=== PATIENT | male | born 1945 | race Caucasian/White ===

== ENCOUNTER 2017-01-03 11:59 | Emergency (ER) | payer OTHER ==
[2017-01-03] MEDS ORDERED: HYDROmorphONE/DILAUDID 1 MG/ML SYR IVP ONE ×2 (12:15→13:29)
[2017-01-03] MEDS ORDERED: NS 1,000 ML IV ONE (12:15)
[2017-01-03] MEDS ORDERED: ONDANSETRON 4 MG/2 ML VIAL ONE (12:18)
--- NOTE | 2017-01-03 12:19 | EDPHY ---
H & P Stated Complaint: Slipped and fell;lac/inj to R wrist and L 5th finger;no LOC Source: Patient Exam Limitations: No limitations - Personal History Current Tetanus Diphtheria and Acellular Pertussis (TDAP): Yes - Medical/Surgical History Hx Asthma: No Hx Chronic Respiratory Disease: No Hx Diabetes: No Hx Cardiac Disease: No Hx Renal Disease: No Hx Cirrhosis: No Hx Alcoholism: No Hx HIV/AIDS: No Hx Splenectomy or Spleen Trauma: No Other PMH: HTN. chronic back pain - Family History Significant Family History: No pertinent family hx - Social History Smoking Status: Never smoked Alcohol Use: Sober Drug Use: None Time Seen by Provider: 01/03/17 12:06 HPI/ROS: CHIEF COMPLAINT: Wrist laceration HISTORY OF PRESENT ILLNESS: 71-year-old man who comes to the emergency department complaining of a laceration to his right wrist. He is trying to water his plants when he slipped and fell cut his wrist on a coffee can. He has a deep laceration with multiple tendons visible and lacerated. He has difficulty with flexion of his 3rd 4th and 5th finger on the right hand. He has normal sensation and pulses. He also has a abrasion to his left forehead but is not concerned about it. He denies headache or neck pain. REVIEW OF SYSTEMS: Constitutional: denies: chills, fever, recent illness, recent injury EENTM: denies: blurred vision, double vision, nose congestion Respiratory: denies: cough, shortness of breath Cardiac: denies: chest pain, irregular heart rate, lightheadedness, palpitations Gastrointestinal/Abdominal: denies: abdominal pain, diarrhea, nausea, vomiting, blood streaked stools Genitourinary: denies: dysuria, frequency, hematuria, pain Musculoskeletal: see HPI Skin: denies: lesions, rash, jaundice, bruising Neurological: denies: headache, numbness, paresthesia, tingling, dizziness, weakness Hematologic/Lymphatic: denies: blood clots, easy bleeding, easy bruising Immunologic/allergic: denies: HIV/AIDS, transplant EXAM: GENERAL: Well-appearing, well-nourished and in no acute distress. HEAD: Atraumatic, normocephalic. EYES: Pupils equal round and reactive to light, extraocular movements intact, sclera anicteric, conjunctiva are normal. ENT: TMs normal, nares patent, oropharynx clear without exudates. Moist mucous membranes. NECK: Normal range of motion, supple without lymphadenopathy or JVD. LUNGS: Breath sounds clear to auscultation bilaterally and equal. No wheezes rales or rhonchi. HEART: Regular rate and rhythm without murmurs, rubs or gallops. ABDOMEN: Soft, nontender, normoactive bowel sounds. No guarding, no rebound. No masses appreciated. BACK: No CVA tenderness, no spinal tenderness, step-offs or deformities EXTREMITIES: Large laceration to right palmar aspect of wrist. Several tendons lacerated that appear to be from the flexor digitorum superficialis. Some weakness over the 3rd 4th and 5th finger flexion. Normal sensation. Normal pulses. NEUROLOGICAL: Cranial nerves II through XII grossly intact. Normal speech, normal gait. 5/5 strength, normal movement in all extremities, normal sensation PSYCH: Normal mood, normal affect. SKIN: See above (Brad Davis) Constitutional: Initial Vital Signs Temperature (C) 36.8 C 01/03/17 12:00 Heart Rate 62 01/03/17 12:00 Respiratory Rate 18 01/03/17 12:00 Blood Pressure 183/100 H 01/03/17 12:00 O2 Sat (%) 98 01/03/17 12:00 O2 Delivery Mode Room Air Allergies/Adverse Reactions: No Known Allergies Allergy (Unverified 02/02/12 11:58) Home Medications: Medication Instructions Recorded Lisinopril [Zestril 10 mg (RX)] mg PO DAILY 01/24/12 Metoprolol Succinate mg PO 01/24/12 amLODIPine BESYLATE 12/13/15 Buprenorphine HCl [Belbuca] 75 mcg BC 01/03/17 oxyCODONE/APAP 5/325 [Percocet 1 - 2 tab PO Q4H PRN #14 tab 01/03/17 5/325 (*)] Medical Decision Making - Diagnostics Imaging: Discussed imaging studies w/ scallop cutter Radiologist - Diagnostics Imaging Results: Imaging Impressions Wrist X-Ray 01/03/17 12:15 Impression: Deep laceration. Procedures: My involvement the care this patient is solely for the procedure. Please see the note of Dr. Davis for all other aspects of care PROCEDURE: Laceration repair Consent: Verbal Location: Right forearm, volar Length of repair: 8 cm Complexity: 3 layer with compromise of the flexor digitorum, flexor indices and fascia of the flexor compartment Layer involvement: single layer closure at direction of Dr. Jaquez Anesthesia: Local by Dr. Davis Irrigation: Extensive Debridement: None Procedure description: Following good anesthesia, the wound was copiously irrigated. Wound bed was explored and there is no foreign body noted. There is multiple, extensive injury to the flexor apparatus, underlying subcutaneous tissue and muscle belly. These were left as is at the direction of Dr. Jaquez. Wound borders were approximated well with good hemostasis. Tolerated well without complication. Suture/Staple material: 5-0 Prolene, 17 simple interrupted sutures Wound care: Routine as discussed Suture/Staple removal: None. To be removed during surgical intervention by Dr. Jaquez (Pantera Mohamud) Procedure: Splint placement. A sugar-tong splint and sling was applied. After application of the splint I returned and re-examined the patient. The splint was adequately immobilizing the joint and distal to the splint the patient's circulation and sensation was intact. (Brad Davis) ED Course/Re-evaluation: 12:30 p.m. I discussed the case with Dr. Marcellus Jaquez. He recommends skin closure and splint in flex a donohue and he will plan surgery for next week. 2:20 p.m. the patient tolerated the procedure well. he will follow up with Dr. Jaquez on Thursday. He and his understand agree with this plan. They are happy with this. They are requesting Percocet for pain control. (Brad Davis) Differential Diagnosis: Partial list of the Differential diagnosis considered include but were not limited to; laceration, tendon injury and although unlikely based on the history and physical exam, I also considered foreign body, fracture, infection. I discussed these differential diagnoses and the plan with the patient as well as the usual and expected course. The patient understands that the diagnosis is provisional and that in medicine we are not always correct and that further workup is often warranted. Usual and customary warnings were given. All of the patient's questions were answered. The patient was instructed to return to the emergency department should the symptoms at all worsen or return, otherwise to followup with the physician as we discussed. ( Rozeski,Brad E) - Data Points Medications Given: Discontinued Medications Hydromorphone HCl (Dilaudid) 1 mg IVP EDNOW ONE Stop: 01/03/17 12:16 Last Admin: 01/03/17 12:46 Dose: 1 mg Hydromorphone HCl (Dilaudid) 1 mg IVP EDNOW ONE Stop: 01/03/17 13:30 Last Admin: 01/03/17 13:33 Dose: 1 mg Sodium Chloride (Ns) 1,000 mls @ 0 mls/hr IV ONCE ONE; Wide Open PRN Reason: Protocol Stop: 01/03/17 12:16 Last Admin: 01/03/17 12:48 Dose: 1,000 mls Departure - Departure Disposition: Home, Routine, Self-Care Clinical Impression: Laceration, Tendon laceration Condition: Fair Instructions: Care For Your Stitches (ED), Laceration (ED), Tendon Laceration ( ED) Referrals: Caleb Chinchilla MD [Primary Care Provider] - As per Instructions Marcellus Jaquez MD [Medical Doctor] - As per Instructions Caleb Zamarripa MD [Medical Doctor] - As per Instructions Prescriptions: oxyCODONE/APAP 5/325 [Percocet 5/325 (*)] 1 - 2 tab PO Q4H PRN #14 tab PRN Reason: Pain, Severe
[2017-01-03] MEDS ORDERED: HYDROmorphONE/DILAUDID 1 MG/ML SYR ONE (13:29)
[2017-01-03 14:33] VITALS: BP 156/97; PULSE 52; RESP 16; TEMP 98.4; O2SAT 94
== END 2017-01-03 14:42 | disposition home or self-care (01) ==
PROC: 0HQDXZZ Repair Right Lower Arm Skin, External Approach (ICD-10-PCS; principal; 2017-01-03)
DX: S56.921A Laceration of unspecified muscles, fascia and tendons at forearm level, right arm, initial encounter (principal); I10 Essential (primary) hypertension; E86.9 Volume depletion, unspecified; W26.8XXA Contact with other sharp object(s), not elsewhere classified, initial encounter
CPT/HCPCS: 12004; 73110; A4565; J1170; J2405; 96374